=== PATIENT | male | born 1985 | race African-American/Black ===

== ENCOUNTER 2024-12-07 21:29 | Emergency (ER) | payer OTHER ==
[~2024-12-07] VITALS: Ht 177.8 cm; Wt 88.0 kg
[2024-12-07 21:30] VITALS: BP 119/69; PULSE 81; RESP 18; O2SAT 98
[2024-12-08] MEDS ORDERED: IBUP-2028 MT (05:59)
== END 2024-12-08 01:32 | disposition left against medical advice (07) ==
LOC: ER 21:29
DX: M54.9 Dorsalgia, unspecified (principal); F41.9 Anxiety disorder, unspecified; F32.A Depression, unspecified; Z53.21 Procedure and treatment not carried out due to patient leaving prior to being seen by health care provider

== ENCOUNTER 2024-12-08 04:32 | Emergency (ER) | payer OTHER ==
[~2024-12-08] VITALS: Ht 177.8 cm; Wt 88.0 kg
[2024-12-08 04:38] VITALS: O2SAT 100
[2024-12-08 04:51] VITALS: TEMP 98; O2SAT 98
[2024-12-08] MEDS ORDERED: IBUP-2028 MT (05:59)
[2024-12-08 06:33] VITALS: BP 122/71; PULSE 88; RESP 16
[2024-12-08] MEDS: IBUPROFEN 600MG TABLET PO ONE (06:33)
== END 2024-12-08 06:34 | disposition home or self-care (01) ==
LOC: ER 04:32
DX: M54.50 Low back pain, unspecified (principal); F41.9 Anxiety disorder, unspecified; F32.A Depression, unspecified; Z88.8 Allergy status to other drugs, medicaments and biological substances
CPT/HCPCS: 99282

== ENCOUNTER 2024-12-27 23:21 | Emergency (ER) | payer OTHER ==
[~2024-12-27] VITALS: Ht 180.3 cm; Wt 100.0 kg
[~2024-12-27 23:21] MED LIST: IBUP-2028 MT
[2024-12-27 23:39] VITALS: O2SAT 98
[2024-12-28] MEDS ORDERED: VILA40TA MT (00:05)
[2024-12-28] MEDS ORDERED: GABA-1180 PO (00:05)
[2024-12-28] MEDS: GABAPENTIN 300MG CAPSULE PO SCH (00:29)
[2024-12-28] MEDS ORDERED: CLOT15CR27 TP (00:36)
[2024-12-28 00:38] VITALS: BP 114/66; PULSE 102; RESP 18; TEMP 36.7; O2SAT 98
== END 2024-12-28 00:41 | disposition home or self-care (01) ==
LOC: ER 23:21
DX: Z76.0 Encounter for issue of repeat prescription (principal); G89.29 Other chronic pain; M54.50 Low back pain, unspecified; F32.A Depression, unspecified; G62.9 Polyneuropathy, unspecified; Z79.899 Other long term (current) drug therapy; Z88.8 Allergy status to other drugs, medicaments and biological substances
CPT/HCPCS: 99283

== ENCOUNTER 2024-12-28 01:02 | Emergency (ER) | payer OTHER ==
[~2024-12-28] VITALS: Ht 188 cm; Wt 90.0 kg
[~2024-12-28 01:02] MED LIST changes: +CLOT15CR27 TP; +GABA-1180 PO; +VILA40TA MT
[2024-12-28 01:06] VITALS: BP 105/79; PULSE 103; RESP 18; TEMP 36.9; O2SAT 97
[2024-12-28 02:18] LABS: CHLORIDE 105 mEq/L (98-107); POTASSIUM 3.4 mEq/L (3.5-5.1); SODIUM 138 mEq/L (136-145)
[2024-12-28 02:19] LABS: CARBON DIOXIDE 23 mEq/L (21-32)
[2024-12-28 02:20] LABS: CALCIUM 9.5 mg/dL (8.7-10.4)
[2024-12-28 02:24] LABS: CREATININE 1.1 mg/dL (0.6-1.3); GLUCOSE 125 mg/dL (70-105)
[2024-12-28 02:25] LABS: UREA NITROGEN BLOOD 16 mg/dL (9-23)
== END 2024-12-28 05:19 | disposition home or self-care (01) ==
LOC: ER 01:24
DX: R42 Dizziness and giddiness (principal); F32.A Depression, unspecified; F41.9 Anxiety disorder, unspecified; Z88.8 Allergy status to other drugs, medicaments and biological substances; Z79.899 Other long term (current) drug therapy
CPT/HCPCS: 36415; 80048; 93005; 99284